=== PATIENT | female | born 1940 | race Caucasian/White ===

== ENCOUNTER 2019-06-07 22:46 | Inpatient (IN) ==
[2019-06-08 00:11] LABS: INR 1.6; Prothrombin Time 18.4 Seconds (9.4-12.1)
[2019-06-08 00:23] LABS: Basophils # 0.1 K/mcL (0.0-0.2); Basophils % 0.4 %; Eosinophils % 0.3 %; Hemoglobin 11.7 g/dL (11.5-15.4); Immature Granulocytes % 4.6 % (0-4); Lymphocytes # 1.2 K/mcL (0.6-4.6); Lymphocytes % 9.2 %; Mean Corpuscular HGB Conc 32.5 g/dL (31.6-35.5); Mean Corpuscular Hemoglobin 28.3 pg (28.0-33.3); Mean Platelet Volume 10.9 fL (9.4-12.4); Monocytes # 0.8 K/mcL (0.0-1.3); Monocytes % 6.4 %; Neutrophils # 10.2 K/mcL (1.6-8.9); Platelet Count 243 K/mcL (140-400); Red Blood Count 4.14 M/mcL (3.82-4.97); Red Cell Distribution Width 13.4 % (11.5-14.5); Segmented Neutrophils % 79.1 %; White Blood Count 12.9 K/mcL (4.3-11.1)
[2019-06-08 00:25] LABS: Calcium 8.5 mg/dL (8.6-10.3); Magnesium 1.5 mg/dL (1.6-2.6); Potassium 4.6 mEq/L (3.5-5.1)
[2019-06-08 00:29] LABS: Troponin I 0.05 ng/mL (< 0.04)
[2019-06-08] MEDS ORDERED: Ondansetron ODT 4 MG TAB.RAPDIS SL PRN (01:27)
[2019-06-08] MEDS ORDERED: Mag Hydrox/Al Hydrox/Simeth 30 ML UDC PO PRN (01:27)
[2019-06-08] MEDS ORDERED: Naloxone 0.4 MG/ML INJ IVP PRN ×2 (01:27→06:09)
[2019-06-08] MEDS ORDERED: Furosemide 20 MG/2 ML VIAL IVP ONE (01:54)
[2019-06-08] MEDS ORDERED: *HR* Dextrose 50 % in Water (Syg) 50 ML SYRINGE IVP PRN ×2 (02:50→10:14)
[2019-06-08] MEDS ORDERED: D5% in Water 1,000 ML IVC PRN ×2 (02:50→10:14)
[2019-06-08] MEDS ORDERED: Dextrose Gel 15 GM/37.5 ML TUBE PO PRN ×4 (02:50→10:14)
[2019-06-08 06:12] LABS: INR 1.5; Prothrombin Time 17.3 Seconds (9.4-12.1)
[2019-06-08 06:43] LABS: Calcium 8.7 mg/dL (8.6-10.3); Chol/HDL Ratio 5.1 (0-4.9); Magnesium 1.6 mg/dL (1.6-2.6); Phosphorous 4.4 mg/dL (2.7-4.5); Potassium 3.9 mEq/L (3.5-5.1)
[2019-06-08] MEDS ORDERED: Insulin LISPRO 300 UNITS/3 ML VIAL SQ SCH (07:30)
[2019-06-08] MEDS: Magnesium Oxide 400 MG TABLET PO SCH ×2 (08:54→20:56)
[2019-06-08] MEDS ORDERED: Amiodarone Premix 150 MG/100 ML BAG IVPB ONE ×2 (09:46→09:56)
[2019-06-08] MEDS ORDERED: Amiodarone Premix 360 MG/200 ML BAG IVC ONE (09:50)
[2019-06-08] MEDS ORDERED: Perflutren Lipid Microsphere 1.3 ML in 0.9 % Sodium Chloride 8.7 ML IVP ONE (10:00)
[2019-06-08] MEDS ORDERED: Amiodarone Premix 360 MG/200 ML BAG IVC SCH (10:00)
[2019-06-08] MEDS: Apixaban 5 MG TABLET PO SCH ×2 (10:01→20:56)
[2019-06-08] MEDS ORDERED: Ringers Solution, Lactated 500 ML IVC ONE (10:05)
[2019-06-08] MEDS: Insulin LISPRO 300 UNITS/3 ML VIAL SQ SCH ×3 (12:21→21:00)
[2019-06-08 12:40] LABS: Estimated Average Glucose 174 mg/dl
[2019-06-08 22:49] LABS: Magnesium 1.6 mg/dL (1.6-2.6); Potassium 3.9 mEq/L (3.5-5.1)
[2019-06-08] MEDS ORDERED: Acetaminophen 325 MG TABLET PO ONE (23:55)
[2019-06-09] MEDS ORDERED: *HR* Metoprolol 5 MG/5 ML VIAL IVP ONE ×2 (00:57→01:02)
[2019-06-09 01:44] LABS: Basophils % 0.4 %; Eosinophils # 0.1 K/mcL (0.0-0.6); Eosinophils % 1.6 %; Hematocrit 31.8 % (35.3-44.9); Hemoglobin 10.5 g/dL (11.5-15.4); Immature Granulocytes % 5.2 % (0-4); Lymphocytes # 1.1 K/mcL (0.6-4.6); Mean Corpuscular Hemoglobin 28.8 pg (28.0-33.3); Mean Corpuscular Volume 87.1 fL (83.0-100.0); Mean Platelet Volume 10.9 fL (9.4-12.4); Monocytes # 0.7 K/mcL (0.0-1.3); Monocytes % 8.4 %; Platelet Count 163 K/mcL (140-400); Red Blood Count 3.65 M/mcL (3.82-4.97); Red Cell Distribution Width 13.5 % (11.5-14.5); Segmented Neutrophils % 70.4 %; White Blood Count 7.7 K/mcL (4.3-11.1)
[2019-06-09 01:46] LABS: Neutrophils # 5.4 K/mcL (1.6-8.9)
[2019-06-09 01:56] LABS: Calcium 8.3 mg/dL (8.6-10.3); Magnesium 1.6 mg/dL (1.6-2.6); Potassium 4.3 mEq/L (3.5-5.1)
[2019-06-09 02:01] LABS: Platelet Estimate Slight Decrease (Normal)
[2019-06-09] MEDS: *HR* LORazepam 1 MG TABLET PO PRN ×2 (03:32→20:43)
[2019-06-09] MEDS: Insulin LISPRO 300 UNITS/3 ML VIAL SQ SCH ×4 (08:03→20:41)
[2019-06-09] MEDS: Insulin DETEMIR 100 UNIT/ML X5UNITS SQ SCH (08:05)
[2019-06-09] MEDS: Aspirin Enteric Coated 81 MG Tablet PO SCH (08:06)
[2019-06-09] MEDS: Apixaban 5 MG TABLET PO SCH ×2 (08:06→20:40)
[2019-06-09] MEDS: Magnesium Oxide 400 MG TABLET PO SCH ×2 (08:07→20:41)
[2019-06-09] MEDS: Tiotropium 18 MCG inhalation IH SCH (11:35)
[2019-06-09] MEDS ORDERED: dilTIAZem HCl 60 MG TABLET PO SCH (14:09)
[2019-06-09] MEDS: dilTIAZem HCl 60 MG TABLET PO SCH ×2 (17:56→23:54)
[2019-06-09] MEDS: 0.9 % Sodium Chloride 1,000 ML IVC SCH (18:01)
[2019-06-10 01:03] LABS: Basophils % 0.6 %; Eosinophils # 0.1 K/mcL (0.0-0.6); Eosinophils % 1.2 %; Hematocrit 32.4 % (35.3-44.9); Hemoglobin 10.3 g/dL (11.5-15.4); Immature Granulocytes % 6.5 % (0-4); Mean Corpuscular HGB Conc 31.8 g/dL (31.6-35.5); Mean Corpuscular Hemoglobin 28.1 pg (28.0-33.3); Mean Corpuscular Volume 88.5 fL (83.0-100.0); Mean Platelet Volume 10.7 fL (9.4-12.4); Monocytes # 0.7 K/mcL (0.0-1.3); Monocytes % 10.4 %; Neutrophils # 4.3 K/mcL (1.6-8.9); Platelet Count 187 K/mcL (140-400); Red Blood Count 3.66 M/mcL (3.82-4.97); Red Cell Distribution Width 13.4 % (11.5-14.5); Segmented Neutrophils % 66.3 %; White Blood Count 6.5 K/mcL (4.3-11.1)
[2019-06-10 01:07] LABS: Calcium 8.1 mg/dL (8.6-10.3); Magnesium 2.1 mg/dL (1.6-2.6)
[2019-06-10 02:23] LABS: Acanthocytes 1+ (Not Present); Platelet Estimate Normal (Normal)
[2019-06-10] MEDS: dilTIAZem HCl 60 MG TABLET PO SCH ×3 (05:34→17:11)
[2019-06-10] MEDS: Insulin LISPRO 300 UNITS/3 ML VIAL SQ SCH ×4 (07:55→20:49)
[2019-06-10] MEDS: Insulin DETEMIR 100 UNIT/ML X5UNITS SQ SCH (07:56)
[2019-06-10] MEDS: Apixaban 5 MG TABLET PO SCH (07:56)
[2019-06-10] MEDS: 0.9 % Sodium Chloride 1,000 ML IVC SCH ×2 (07:56→20:49)
[2019-06-10] MEDS: Magnesium Oxide 400 MG TABLET PO SCH ×2 (07:56→20:51)
[2019-06-10] MEDS: Aspirin Enteric Coated 81 MG Tablet PO SCH (07:56)
[2019-06-10] MEDS: Tiotropium 18 MCG inhalation IH SCH (08:17)
[2019-06-10] MEDS: *HR* LORazepam 1 MG TABLET PO PRN ×2 (15:05→20:50)
[2019-06-10 17:02] LABS: INR 1.6; Prothrombin Time 17.8 Seconds (9.4-12.1)
[2019-06-10] MEDS ORDERED: Warfarin perPT PO PRN (18:00)
[2019-06-10] MEDS ORDERED: *HR* Warfarin 5 MG TABLET PO ONE (18:00)
[2019-06-10] MEDS: *HR* Enoxaparin 80 MG/0.8 ML SYRINGE SQ SCH (20:50)
[2019-06-11] MEDS: dilTIAZem HCl 60 MG TABLET PO SCH ×2 (00:14→05:16)
[2019-06-11 05:00] LABS: INR 1.3; Prothrombin Time 14.2 Seconds (9.4-12.1)
[2019-06-11 05:03] LABS: BUN/Creatinine Ratio 7 (6-26); Blood Urea Nitrogen 7 mg/dL (8-23); Carbon Dioxide 28 mEq/L (23-29); Chloride 100 mEq/L (98-107); Glucose 133 mg/dL (70-105); Hematocrit 28.8 % (35.3-44.9); Hemoglobin 8.9 g/dL (11.5-15.4); Magnesium 1.8 mg/dL (1.6-2.6); Mean Corpuscular HGB Conc 30.9 g/dL (31.6-35.5); Mean Corpuscular Hemoglobin 28.5 pg (28.0-33.3); Mean Corpuscular Volume 92.3 fL (83.0-100.0); Mean Platelet Volume 10.5 fL (9.4-12.4); Osmolality,Calculated 284 (280-300); Platelet Count 163 K/mcL (140-400); Red Blood Count 3.12 M/mcL (3.82-4.97); Red Cell Distribution Width 13.8 % (11.5-14.5); Sodium 137 mEq/L (136-145); White Blood Count 6.1 K/mcL (4.3-11.1); eGFR For African Americans > 60 (> 60); eGFR For Non-African Americans 53 (> 60)
[2019-06-11 06:34] LABS: Lymphocytes # 1.7 K/mcL (0.6-4.6); Monocytes # 0.2 K/mcL (0.0-1.3); Neutrophils # 3.5 K/mcL (1.6-8.9)
[2019-06-11] MEDS: Tiotropium 18 MCG inhalation IH SCH (08:38)
[2019-06-11] MEDS ORDERED: Furosemide 40 MG/4 ML VIAL ONE (08:47)
[2019-06-11] MEDS ORDERED: Furosemide 40 MG/4 ML VIAL IVP ONE (08:51)
[2019-06-11] MEDS: Magnesium Oxide 400 MG TABLET PO SCH ×2 (09:33→20:33)
[2019-06-11] MEDS: Insulin LISPRO 300 UNITS/3 ML VIAL SQ SCH ×4 (09:33→20:34)
[2019-06-11] MEDS: Insulin DETEMIR 100 UNIT/ML X5UNITS SQ SCH (09:33)
[2019-06-11] MEDS: Aspirin Enteric Coated 81 MG Tablet PO SCH (09:33)
[2019-06-11] MEDS ORDERED: Levalbuterol Neb 0.63 MG/3 ML ONE (10:19)
[2019-06-11] MEDS: Levalbuterol Neb 0.63 MG/3 ML IH SCH ×3 (11:09→22:28)
[2019-06-11] MEDS: Diltiazem CD (24hr) 180 MG CAPSULE PO SCH (12:16)
[2019-06-11] MEDS ORDERED: *HR* Warfarin 5 MG TABLET PO ONE (18:00)
[2019-06-11] MEDS: *HR* Enoxaparin 80 MG/0.8 ML SYRINGE SQ SCH (20:33)
[2019-06-11] MEDS: *HR* LORazepam 1 MG TABLET PO PRN (23:04)
[2019-06-11] MEDS ORDERED: *HR* Metoprolol 5 MG/5 ML VIAL IVP ONE (23:52)
[2019-06-12] MEDS: Aspirin Enteric Coated 81 MG Tablet PO SCH (07:56)
[2019-06-12] MEDS: Levalbuterol Neb 0.63 MG/3 ML IH SCH ×3 (07:56→22:54)
[2019-06-12] MEDS: Insulin DETEMIR 100 UNIT/ML X5UNITS SQ SCH (07:56)
[2019-06-12] MEDS: Magnesium Oxide 400 MG TABLET PO SCH ×2 (07:57→20:28)
[2019-06-12] MEDS: Insulin LISPRO 300 UNITS/3 ML VIAL SQ SCH ×4 (07:57→20:22)
[2019-06-12] MEDS: Diltiazem CD (24hr) 180 MG CAPSULE PO SCH (07:57)
[2019-06-12] MEDS: Tiotropium 18 MCG inhalation IH SCH (08:02)
[2019-06-12 10:52] LABS: Hematocrit 35.2 % (35.3-44.9); Lymphocytes # 1.3 K/mcL (0.6-4.6); Mean Corpuscular HGB Conc 31.8 g/dL (31.6-35.5); Mean Corpuscular Hemoglobin 28.4 pg (28.0-33.3); Mean Corpuscular Volume 89.1 fL (83.0-100.0); Mean Platelet Volume 10.4 fL (9.4-12.4); Platelet Count 211 K/mcL (140-400); Red Blood Count 3.95 M/mcL (3.82-4.97); Red Cell Distribution Width 13.6 % (11.5-14.5)
[2019-06-12 10:54] LABS: Hemoglobin 11.2 g/dL (11.5-15.4)
[2019-06-12 11:06] LABS: INR 1.2; Prothrombin Time 14.1 Seconds (9.4-12.1)
[2019-06-12 11:12] LABS: Calcium 8.3 mg/dL (8.6-10.3); Magnesium 1.7 mg/dL (1.6-2.6); Potassium 3.7 mEq/L (3.5-5.1)
[2019-06-12 11:16] LABS: Eosinophils # 0.3 K/mcL (0.0-0.6); Monocytes # 0.3 K/mcL (0.0-1.3); Neutrophils # 5.2 K/mcL (1.6-8.9)
[2019-06-12 11:17] LABS: Anisocytosis 1+ (Not Present); Platelet Estimate Normal (Normal)
[2019-06-12] MEDS ORDERED: Metoprolol XL (24 HR) Succ 25 MG TAB.ER.24H PO SCH (13:30)
[2019-06-12] MEDS ORDERED: *HR* Warfarin 3 MG TABLET PO SCH (18:00)
[2019-06-12] MEDS: *HR* LORazepam 1 MG TABLET PO PRN (20:27)
[2019-06-12] MEDS: *HR* Enoxaparin 80 MG/0.8 ML SYRINGE SQ SCH (20:27)
[2019-06-13 02:15] LABS: Hemoglobin 10.2 g/dL (11.5-15.4); Mean Corpuscular HGB Conc 30.9 g/dL (31.6-35.5); Mean Corpuscular Hemoglobin 28.1 pg (28.0-33.3); Mean Corpuscular Volume 90.9 fL (83.0-100.0); Mean Platelet Volume 10.2 fL (9.4-12.4); Platelet Count 212 K/mcL (140-400); Red Blood Count 3.63 M/mcL (3.82-4.97); Red Cell Distribution Width 13.4 % (11.5-14.5); White Blood Count 9.2 K/mcL (4.3-11.1)
[2019-06-13 02:35] LABS: BUN/Creatinine Ratio 10 (6-26); Blood Urea Nitrogen 10 mg/dL (8-23); Calcium 7.9 mg/dL (8.6-10.3); Carbon Dioxide 32 mEq/L (23-29); Chloride 97 mEq/L (98-107); Glucose 144 mg/dL (70-105); Magnesium 1.7 mg/dL (1.6-2.6); Osmolality,Calculated 284 (280-300); Potassium 3.7 mEq/L (3.5-5.1); Sodium 136 mEq/L (136-145); eGFR For African Americans > 60 (> 60); eGFR For Non-African Americans 52 (> 60)
[2019-06-13 02:41] LABS: INR 1.3; Prothrombin Time 14.5 Seconds (9.4-12.1)
[2019-06-13 02:50] LABS: Lymphocytes # 1.7 K/mcL (0.6-4.6); Monocytes # 0.6 K/mcL (0.0-1.3)
[2019-06-13 02:51] LABS: Platelet Estimate Normal (Normal)
[2019-06-13] MEDS: Diltiazem CD (24hr) 180 MG CAPSULE PO SCH (07:54)
[2019-06-13] MEDS: Aspirin Enteric Coated 81 MG Tablet PO SCH (07:54)
[2019-06-13] MEDS: Magnesium Oxide 400 MG TABLET PO SCH (07:55)
[2019-06-13] MEDS: Tiotropium 18 MCG inhalation IH SCH (07:55)
[2019-06-13] MEDS: Insulin DETEMIR 100 UNIT/ML X5UNITS SQ SCH (07:57)
[2019-06-13] MEDS: Insulin LISPRO 300 UNITS/3 ML VIAL SQ SCH ×2 (07:57→11:41)
[2019-06-13] MEDS ORDERED: Metoprolol XL (24 HR) Succ 50 MG TAB.ER.24H PO SCH (09:00)
[2019-06-13 11:20] VITALS: BP 145/75
[2019-06-13] MEDS ORDERED: *HR* Warfarin 3 MG TABLET PO SCH (18:00)
== END 2019-06-13 17:40 | disposition home health service (06) | DRG 308 ==
LOC: EMEROOARM 22:46 → CDU 22:46 → SUATTDRO 06-08 00:48 → CDU 06-08 01:13 → 2NNU 06-08 17:00
PROVIDERS: ADMIT Internal Medicine; ATTEND Pharmacist